=== PATIENT | male | born 1970 | race African-American/Black ===

== ENCOUNTER 2023-09-09 14:50 | Emergency (ER) | payer OTHER ==
[~2023-09-09 14:50] MED LIST: Iopamidol 370 76% 100 ML VIAL ONE
[2023-09-09 15:54] LABS: #Basophils 0.1 10x3/uL (0.0-0.2); #Eosinphils 0.1 10x3/uL (0.0-0.5); #Monocytes 0.7 10x3/uL (0.0-1.1); #Neutrophils 8.1 10x3/uL (1.5-8.4); %Basophils 0.6 % (0.0-2.0); %Eosinophils 0.5 % (0.0-6.0); %Lymphocytes 7.9 % (18.0-47.0); %Monocytes 7.6 % (0.0-10.0); %Neutrophils 83.1 % (40.0-75.0); Hematocrit 27.7 % (38.8-50.0); Hemoglobin 8.7 g/dL (13.5-17.5); Mean Corpuscular HGB CONC 31.4 g/dL (32.0-36.0); Mean Corpuscular Hemoglobin 27.5 pg (27.0-33.0); Mean Corpuscular Volume 87.7 fl (81.2-95.1); Mean Platelet Volume 10.2 fl (7.4-10.4); Platelet Count 229 10x3/uL (150-450); Red Blood Cell (RBC) Count 3.16 10x6/uL (4.32-5.72); White Blood Cell (WBC) Count 9.7 10x3/uL (3.5-10.5)
[2023-09-09] MEDS ORDERED: Vancomycin 1.5 GRAM/300 ML BAG 1.5 GM in Premix Bag 1 BAG IVPB SCH (16:00)
[2023-09-09 16:11] LABS: ALT (SGPT) Less than 7 U/L (8-55); AST (SGOT) 24 U/L (5-34); Alkaline Phosphatase 77 U/L (40-110); Anion Gap 20 mmol/L (10-20); BUN (Urea Nitrogen) 19 mg/dL (8.4-25.7); Bilirubin, Total 0.5 mg/dL (0.2-1.2); Calc. Creatinine Clearance 0 mL/min (70-130); Calcium 7.7 mg/dL (7.8-10.44); Carbon Dioxide 20 mmol/L (22-29); Chloride 100 mmol/L (98-107); Estimated GFR 47; Globulin 3.5 g/dL (2.4-3.5); Glucose 336 mg/dL (70-105); Magnesium 1.3 mg/dL (1.6-2.6); Potassium 3.9 mmol/L (3.5-5.1); Protein, Total 6.5 g/dL (6.0-8.3); Sodium 136 mmol/L (136-145)
[2023-09-09 16:18] LABS: SARS-CoV-2 NAA Rapid Test Not Detected (NotDetected)
[2023-09-09] MEDS ORDERED: Cefepime 2 GM VIAL ONE (17:03)
[2023-09-09] MEDS ORDERED: LevoFLOXacin 750 mg/D5W 150 ml Premix Bag ONE (17:03)
[2023-09-09 17:44] LABS: Troponin I 0.039 ng/mL (< 0.028)
[2023-09-09] MEDS ORDERED: Furosemide 40 MG/4 ML VIAL ONE (17:50)
[2023-09-09] MEDS ORDERED: Magnesium Oxide 400 MG TAB PO SCH (18:00)
[2023-09-09] MEDS ORDERED: Aspirin Chewable 81 MG TAB ONE (18:39)
== END 2023-09-09 21:01 | disposition short-term general hospital (02) ==
LOC: EEVIPCON 14:50 → CSHERS 14:50
DX: R09.02 Hypoxemia (principal); I12.9 Hypertensive chronic kidney disease with stage 1 through stage 4 chronic kidney disease, or unspecified chronic kidney disease; E11.22 Type 2 diabetes mellitus with diabetic chronic kidney disease; E11.40 Type 2 diabetes mellitus with diabetic neuropathy, unspecified; N18.9 Chronic kidney disease, unspecified; E03.9 Hypothyroidism, unspecified; Z20.822 Contact with and (suspected) exposure to COVID-19
CPT/HCPCS: 36415; 36416; 71045; 71275; 80053; 83605; 83735; 83880; 84484; 85025; 87040; 93005; 96374; 96375; J0692; J1940; J1956; J3370; Q9967